=== PATIENT | female | born 2005 | race Caucasian/White ===

== ENCOUNTER 2024-05-11 13:25 | Emergency (ER) | payer OTHER ==
[~2024-05-11] VITALS: Ht 152.4 cm; Wt 61.4 kg
[2024-05-11 13:26] VITALS: BP 120/75; PULSE 84; RESP 20; TEMP 98.4; O2SAT 99
[2024-05-11 14:11] LABS: BASOPHILS % (AUTO) 0.4 % (0.0-2.0); HEMATOCRIT 34.9 % (36-46); HEMOGLOBIN 11.2 g/dL (12.0-16.0); LYMPHOCYTES # (AUTO) 2.1 K/uL (1.0-4.8); LYMPHOCYTES % (AUTO) 17.1 % (22.0-44.0); MEAN CORPUSCULAR HEMOGLOBIN 23.3 pg (26.0-34.0); MEAN CORPUSCULAR VOLUME 73 fL (80-100); MONOCYTES # (AUTO) 0.6 K/uL (0.1-1.0); MONOCYTES % (AUTO) 5.2 % (2.0-9.0); NEUTROPHILS # (AUTO) 9.3 K/uL (1.8-7.7); NEUTROPHILS % (AUTO) 76.3 % (40.0-70.0); PLATELET COUNT (AUTO) 392 K/uL (150-450); RED CELL DISTRIBUTION WIDTH 17.1 % (11.5-14.5); WHITE BLOOD COUNT (AUTO) 12.1 K/uL (4.5-11.0)
[2024-05-11 14:19] LABS: ANION GAP 9 mmol/L (8-16); CALCIUM, TOTAL 9.3 mg/dL (8.8-10.5); CARBON DIOXIDE 29 mmol/L (22-29); CHLORIDE 101 mmol/L (98-107); CREATININE 0.69 mg/dL (0.60-1.30); GLOMERULAR FILTR. RATE CALC > 60 mL/min (>60); GLUCOSE,RANDOM 117 mg/dL (70-110); POTASSIUM 4.2 mmol/L (3.5-5.1); SODIUM SERUM 139 mmol/L (136-145); UREA NITROGEN, BLOOD 8 mg/dL (7-18)
[2024-05-11 14:30] LABS: APPEARANCE,URINE CLEAR (CLEAR); BILIRUBIN,URINE NEGATIVE (NEGATIVE); COLOR,URINE COLORLESS (YELLOW); GLUCOSE, URINE (UA) NEGATIVE (NEGATIVE); KETONES,URINE NEGATIVE (NEGATIVE); LEUKOCYTE ESTERASE ,URINE MODERATE (NEGATIVE); NITRATE,URINE NEGATIVE (NEGATIVE); OCCULT BLOOD,URINE MODERATE (NEGATIVE); PH,URINE 5.5 (5.0-8.0); PROTEIN,URINE TRACE mg/dL (NEGATIVE); SPECIFIC GRAVITIY, URINE 1.003 (1.003-1.030); UROBILINOGEN,URINE <=1.0 mg/dL (<=1.0)
[2024-05-11 14:32] LABS: HCG,QUANTITATIVE 1 mIU/mL (0-6); LIPASE 40 U/L (16-77)
[2024-05-11 14:50] LABS: BACTERIA,URINE Rare /HPF (None Seen); SQUAMOUS EPITHELIAL CELL,UR None Seen /LPF (None Seen)
[2024-05-11] MEDS ORDERED: CEPH-558 PO (15:47)
[2024-05-11 15:51] LABS: RBC MORPHOLOGY COMMENT ABNORMAL RBC MORPH
[2024-05-11] MEDS: LIDOCAINE/PF 1% 2 ML VIAL IM ONE (15:59)
[2024-05-11] MEDS: CefTRIAXone SODIUM 1 GM/VIAL IM ONE (15:59)
== END 2024-05-11 16:16 | disposition home or self-care (01) ==
LOC: EMS 13:25
DX: N39.0 Urinary tract infection, site not specified (principal)
CPT/HCPCS: 99283; 80048; 81001; 83690; 84702; 85025; 87077; 87086; 87186; 36415; 96372; J0696; J3490

== ENCOUNTER 2024-10-06 09:02 | Emergency (ER) | payer OTHER ==
[~2024-10-06] VITALS: Ht 154.9 cm; Wt 59.1 kg
[~2024-10-06 09:02] MED LIST: CEPH-558 PO
[2024-10-06 09:11] VITALS: BP 113/78; TEMP 98.2
[2024-10-06 09:26] LABS: COVID AG,FIA SOURCE NASAL SWAB
[2024-10-06 09:55] LABS: INFLUENZA TYPE A NEGATIVE FOR TYPE A (NEGATIVE); INFLUENZA TYPE B NEGATIVE FOR TYPE B (NEGATIVE)
[2024-10-06 09:56] LABS: SARS-COV2 (COVID) ANTIGEN,FIA Negative (Negative)
[2024-10-06] MEDS ORDERED: ALBU18HF12 IH (10:10)
[2024-10-06] MEDS ORDERED: AZIT250T9 PO (10:10)
[2024-10-06] MEDS: IPRATROPIUM BROMIDE 0.5 MG/2.5 ML NEB SOLUTION NEB ONE (11:20)
[2024-10-06] MEDS: ALBUTEROL SULFATE 2.5 MG/0.5 ML NEB SOLUTION NEB ONE (11:20)
[2024-10-06 11:21] VITALS: PULSE 71; RESP 20; O2SAT 98
[2024-10-06 11:37] VITALS: PULSE 88; RESP 20; O2SAT 99
== END 2024-10-06 12:05 | disposition home or self-care (01) ==
LOC: EMS 09:06
DX: J98.4 Other disorders of lung (principal); J45.909 Unspecified asthma, uncomplicated; Z20.822 Contact with and (suspected) exposure to COVID-19
CPT/HCPCS: 71045; 87804; 94640; 99284; J7613